=== PATIENT | female | born 1995 | race Caucasian/White ===

== ENCOUNTER → 2017-01-09 | Outpatient (CLI) | payer OTHER | LOC: RAD 09:56 | DX: M25.532 Pain in left wrist (principal) | CPT/HCPCS: 73110; 73130 ==

== ENCOUNTER 2020-11-20 03:16 | Emergency (ER) | payer OTHER | END 2020-11-20 04:49 | disposition left against medical advice (07) | LOC: ER1 03:16 | DX: O99.613 Diseases of the digestive system complicating pregnancy, third trimester (principal); K92.0 Hematemesis; Z3A.30 30 weeks gestation of pregnancy; Z53.21 Procedure and treatment not carried out due to patient leaving prior to being seen by health care provider ==

== ENCOUNTER 2020-12-11 17:25 | Emergency (ER) | payer OTHER | END 2020-12-11 18:18 | disposition home or self-care (01) | LOC: ER1 17:25 | DX: O9A.213 Injury, poisoning and certain other consequences of external causes complicating pregnancy, third trimester (principal); S39.91XA Unspecified injury of abdomen, initial encounter; Z3A.34 34 weeks gestation of pregnancy; Z79.899 Other long term (current) drug therapy; Z88.8 Allergy status to other drugs, medicaments and biological substances; W01.0XXA Fall on same level from slipping, tripping and stumbling without subsequent striking against object, initial encounter | CPT/HCPCS: 59025; 99283 ==

== ENCOUNTER 2020-12-11 19:19 | Outpatient (CLI) | payer OTHER | END 2020-12-11 21:05 | disposition home or self-care (01) | LOC: GENOP 19:19 | DX: O9A.213 Injury, poisoning and certain other consequences of external causes complicating pregnancy, third trimester (principal) | CPT/HCPCS: 59025 ==

== ENCOUNTER 2021-01-12 14:41 | Outpatient (CLI) | payer OTHER | END 2021-01-12 16:41 | disposition home or self-care (01) | LOC: GENOP 14:41 | DX: O62.9 Abnormality of forces of labor, unspecified (principal); Z3A.38 38 weeks gestation of pregnancy | CPT/HCPCS: G0463 ==

== ENCOUNTER 2021-01-15 13:11 | Outpatient (CLI) | payer OTHER ==
[2021-01-15 14:42] LABS: HEMOGLOBIN 9.2 gm/dl (12.3-15.3); RED BLOOD COUNT 3.5 M/UL (4.00-5.10); WHITE BLOOD COUNT 10.7 K/UL (4.5-11.0)
[2021-01-16] MEDS ORDERED: FERROUS SULFAT325 MG PO (06:16)
[2021-01-16] MEDS ORDERED: HYDROCODON-ACE1 EAC4 PO (08:45)
[2021-01-16] MEDS ORDERED: DOCUSATE SODIU100 MG PO (08:45)
[2021-01-16] MEDS ORDERED: IBUPROFEN600 MG PO (08:45)
== END 2021-01-15 14:05 | disposition home or self-care (01) ==
LOC: GENOP 13:11
PROVIDERS: Obstetrics & Gynecology
DX: Z01.812 Encounter for preprocedural laboratory examination (principal)
CPT/HCPCS: 81001; 85025

== ENCOUNTER 2021-01-16 05:21 | Inpatient (IN) | payer OTHER ==
[~2021-01-16] VITALS: Ht 165.1 cm; Wt 107.0 kg
[2021-01-16] MEDS ORDERED: FERROUS SULFAT325 MG PO (06:16)
[2021-01-16] MEDS ORDERED: HYDROCODON-ACE1 EAC4 PO (08:45)
[2021-01-16] MEDS ORDERED: IBUPROFEN600 MG PO (08:45)
[2021-01-16] MEDS ORDERED: DOCUSATE SODIU100 MG PO (08:45)
[2021-01-17 06:07] LABS: HEMOGLOBIN 8.3 gm/dl (12.3-15.3)
== END 2021-01-17 13:24 | disposition home or self-care (01) | DRG 788 ==
LOC: OB 05:21
PROVIDERS: ADMIT Obstetrics & Gynecology
PROC: 4A1HXCZ Monitoring of Products of Conception, Cardiac Rate, External Approach (ICD-10-PCS; 2021-01-16)
PROC: 10D00Z1 Extraction of Products of Conception, Low, Open Approach (ICD-10-PCS; principal; 2021-01-16 07:30)
DX: O34.211 Maternal care for low transverse scar from previous cesarean delivery (principal); Z3A.39 39 weeks gestation of pregnancy; Z37.0 Single live birth; O99.02 Anemia complicating childbirth; D64.9 Anemia, unspecified; Z20.822 Contact with and (suspected) exposure to COVID-19; Z80.42 Family history of malignant neoplasm of prostate
CPT/HCPCS: 36415; 81001; 82800; 85014; 85018; 85025; 90715; C9113; J0690; J0694; J1885; J2274; J2405; J2590; J3010; J7120; U0003

== ENCOUNTER 2021-01-20 12:57 | Emergency (ER) | payer OTHER ==
[~2021-01-20 12:57] MED LIST: DOCUSATE SODIU100 MG PO; FERROUS SULFAT325 MG PO; HYDROCODON-ACE1 EAC4 PO; IBUPROFEN600 MG PO
[2021-01-20] MEDS ORDERED: BACTRIM DS TAB1 EACH PO (14:34)
== END 2021-01-20 14:40 | disposition home or self-care (01) ==
LOC: ER1 12:57
DX: O86.01 Infection of obstetric surgical wound, superficial incisional site (principal); L76.34 Postprocedural seroma of skin and subcutaneous tissue following other procedure
CPT/HCPCS: 99283